=== PATIENT | female | born 1965 | race Caucasian/White ===

== ENCOUNTER 2017-06-13 13:58 | Emergency (ER) | payer MEDICARE, OTHER ==
[2017-06-13 14:08] VITALS: RESP 18; TEMP 98.1
[2017-06-13] MEDS ORDERED: PREDNISONE 20 MG TAB PO ONE (14:14)
[2017-06-13] MEDS ORDERED: CLONIDINE 0.1 MG TAB PO ONE (14:15)
[2017-06-13] MEDS ORDERED: ACETAMI/HYDROCO 325/10 TAB PO ONE (14:15)
[2017-06-13] MEDS ORDERED: PREDNISONE 20 MG TAB ONE (14:16)
[2017-06-13] MEDS ORDERED: APAP/HYDROCODONE 325/5 TAB ONE (14:21)
[2017-06-13] MEDS ORDERED: CLONIDINE 0.1 MG TAB ONE (14:21)
[2017-06-13 14:57] VITALS: BP 154/96; PULSE 80; O2SAT 95
== END 2017-06-13 14:45 | disposition home or self-care (01) | DRG 547 ==
LOC: ED 13:58
DX: M06.9 Rheumatoid arthritis, unspecified (principal); I10 Essential (primary) hypertension
CPT/HCPCS: 99282; 99283